=== PATIENT | male | born 1955 | race African-American/Black ===

== ENCOUNTER 2017-01-06 19:08 | Emergency (ER) | payer BC ==
[2017-01-06 19:18] VITALS: O2SAT 94
[2017-01-06] MEDS ORDERED: TDAP ADULT 0.5 ML INJ (BOOSTRIX) IM ONE ×2 (19:33→19:34)
[2017-01-06] MEDS ORDERED: SKIN ADHESIVE (DERMABOND) 1 EACH TP ONE (19:34)
--- NOTE | 2017-01-06 19:46 | EDPHY ---
H & P Time Seen by Provider: 01/06/17 19:26 HPI/ROS: CHIEF COMPLAINT: Fall with right facial laceration HISTORY OF PRESENT ILLNESS: Foot slipped while he was hiking today and his glasses cut his face just lateral to his right eye. No loss of consciousness, no headache, no neck or back pain. No double vision. He does have an abrasion on the palm of his left hand. REVIEW OF SYSTEMS: And no recent illnesses. No vomiting. No weakness or numbness in extremities, normal behavior. Has been using the left hand with minimal pain PAST MEDICAL HISTORY: Glaucoma, high cholesterol, bilateral knee scope Social history: Visiting from out of town General Appearance: Alert and conversant, cooperative. Alert, ambulatory, not ataxic. Pupils equal and reactive and extraocular motion intact, no diplopia. No facial bony tenderness or crepitus. 1 cm laceration curvilinear lateral to the right eye does not involve the canthus. No spinal tenderness. Left hand has thenar eminence tenderness but no snuffbox tenderness but [employer] director strength and normal range of motion and abrasion on the palm. Emergency Department course/MDM: Patient presents without red flags to suggest he is high risk for spinal injury or intracranial bleeding or skull fracture. Patient declined x-ray of the left hand, was warned of potential morbidity of delayed diagnosis, will follow up with Orthopedics if he still has left hand pain in 2 days. Procedure: Laceration repair. Verbal consent was obtained from the patient. The 1 cm laceration on the right face lateral to the eye was anesthetized using topical anesthetic. The wound was irrigated with standard emergency department protocol, and explored. There were no deep structures involved. No foreign body found. The wound was repaired with wound adhesive. The wound repair was simple. Excellent hemostasis was obtained. Wound care instructions were discussed and the patient was warned regarding scarring. The procedure was performed by myself. Smoking Status: Never smoked Constitutional: Initial Vital Signs Temperature (C) 37.3 C 01/06/17 19:13 Heart Rate 63 01/06/17 19:13 Respiratory Rate 14 01/06/17 19:13 Blood Pressure 143/88 H 01/06/17 19:13 O2 Sat (%) 94 01/06/17 19:13 O2 Delivery Mode Room Air Allergies/Adverse Reactions: amoxicillin Allergy (Verified 01/06/17 19:12) Home Medications: Medication Instructions Recorded Aspirin 01/06/17 Timolol 01/06/17 Travatan Z 01/06/17 Zocor 01/06/17 MDM/Departure - MDM Medications Given: Discontinued Medications Diphtheria/Tetanus/Acell Pertussis (Boostrix) 0.5 ml IM .ONCE ONE Stop: 01/06/17 19:34 Last Admin: 01/06/17 19:38 Dose: 0.5 ml - Depart Disposition: Home, Routine, Self-Care Clinical Impression: Facial laceration Qualifiers: Encounter type: initial encounter Qualified Code(s): S01.81XA - Laceration without foreign body of other part of head, initial encounter Contusion of left hand Qualifiers: Encounter type: initial encounter Qualified Code(s): S60.222A - Contusion of left hand, initial encounter Condition: Good Instructions: Head Injury (ED), Skin Adhesive Care (ED) Additional Instructions: Please follow-up with Dr. Christensen referral orthopedic surgeon if you're still having hand pain in the next 2 or 3 days. You received tetanus vaccine in the emergency department. Referrals: Prince Christensen MD [Medical Doctor] - As per Instructions
[2017-01-06 20:17] VITALS: BP 146/92; PULSE 67; RESP 16; TEMP 99.3
== END 2017-01-06 20:18 | disposition home or self-care (01) ==
PROC: 0HQ1XZZ Repair Face Skin, External Approach (ICD-10-PCS; principal; 2017-01-06)
DX: S01.81XA Laceration without foreign body of other part of head, initial encounter (principal); S60.222A Contusion of left hand, initial encounter; Z23 Encounter for immunization; Z79.82 Long term (current) use of aspirin; W01.198A Fall on same level from slipping, tripping and stumbling with subsequent striking against other object, initial encounter; Y99.8 Other external cause status; Y93.01 Activity, walking, marching and hiking